=== PATIENT | female | born 1940 | race American Indian/Alaskan Native ===

== ENCOUNTER 2021-12-15 11:23 | Emergency (ER) | payer MEDICARE ==
[2021-12-15 14:17] VITALS: BP 179/75
--- NOTE | 2021-12-15 14:24 | Emergency Department Report ---
ED General Adult HPI - General Chief complaint: Hyperglycemia Stated complaint: BLOOD SUGAR Time Seen by Provider: 12/15/21 14:19 Source: patient Mode of arrival: Ambulatory Limitations: No Limitations - Related Data Home Medications Medication Instructions Recorded Confirmed Last Taken Aspirin BABY CHEW TAB 81 mg PO DAILY 08/14/14 08/14/14 Unknown Lisinopril 40 mg PO DAILY 08/14/14 08/14/14 Unknown NexIUM 20 mg PO DAILY 08/14/14 08/14/14 Unknown Rosuvastatin Calcium 5 mg PO DAILY 08/14/14 08/14/14 Unknown Triamter/Hctz 75-50 mg 1 tab PO DAILY 08/14/14 08/14/14 Unknown Verapamil 180 mg PO DAILY 08/14/14 08/14/14 Unknown glipiZIDE XL 2.5 mg PO DAILY 08/14/14 08/14/14 Unknown metFORMIN 500 mg PO BID 08/14/14 08/14/14 Unknown Previous Rx's Medication Instructions Recorded Last Taken Type Famotidine [Pepcid] 20 mg PO BID #14 tablet 08/14/14 Unknown Rx cephALEXin [Keflex] 500 mg PO TID #30 capsule 08/14/14 Unknown Rx hydrOXYzine PAMOATE [Vistaril] 25 mg PO Q6HR PRN #30 capsule 08/14/14 Unknown Rx Furosemide [Lasix] 20 mg PO QDAY PRN #20 tablet 09/17/14 Unknown Rx Allergies Allergy/AdvReac Type Severity Reaction Status Date / Time Penicillins Allergy Hives Verified 12/15/21 14:12 Sulfa (Sulfonamide Allergy Hives Verified 12/15/21 14:12 Antibiotics) ED Review of Systems ROS: Stated complaint: BLOOD SUGAR Other details as noted in HPI ED Past Medical Hx - Past Medical History Hx Hypertension: Yes Hx Diabetes: Yes Hx GERD: Yes Hx Renal Disease: Yes Hx Arthritis: Yes (GOUT) Additional medical history: HIGH CHOLESTEROL. ECZEMA. Bullous pemphigoid - Surgical History Additional Surgical History: HYSTERECTOMY - Social History Smoking Status: Former Smoker Substance Use Type: None - Medications Home Medications: Home Medications Medication Instructions Recorded Confirmed Last Taken Type Aspirin BABY CHEW TAB 81 mg PO DAILY 08/14/14 08/14/14 Unknown History Famotidine [Pepcid] 20 mg PO BID #14 tablet 08/14/14 Unknown Rx Lisinopril 40 mg PO DAILY 08/14/14 08/14/14 Unknown History NexIUM 20 mg PO DAILY 08/14/14 08/14/14 Unknown History Rosuvastatin Calcium 5 mg PO DAILY 08/14/14 08/14/14 Unknown History Triamter/Hctz 75-50 mg 1 tab PO DAILY 08/14/14 08/14/14 Unknown History Verapamil 180 mg PO DAILY 08/14/14 08/14/14 Unknown History cephALEXin [Keflex] 500 mg PO TID #30 capsule 08/14/14 Unknown Rx glipiZIDE XL 2.5 mg PO DAILY 08/14/14 08/14/14 Unknown History hydrOXYzine PAMOATE [Vistaril] 25 mg PO Q6HR PRN #30 capsule 08/14/14 Unknown Rx metFORMIN 500 mg PO BID 08/14/14 08/14/14 Unknown History Furosemide [Lasix] 20 mg PO QDAY PRN #20 tablet 09/17/14 Unknown Rx ED Physical Exam - General Limitations: No Limitations ED Course Vital Signs 12/15/21 14:15 Temperature 98.6 F Pulse Rate 65 Respiratory 20 Rate Blood Pressure 179/75 O2 Sat by Pulse 98 Oximetry Critical care attestation.: If time is entered above; I have spent that time in minutes in the direct care of this critically ill patient, excluding procedure time. ED Disposition Clinical Impression: Hyperglycemia Disposition: 01 HOME / SELF CARE / HOMELESS Is pt being admited?: No Does the pt Need Aspirin: No Condition: Stable Instructions: Preventing Type 2 Diabetes Mellitus, Hyperglycemia, [id number] Additional Instructions: Continue medications as prescribed by your doctor. Monitor and record your blood sugar. Follow up with your primary care doctor for further evaluation and management. Return to ED as needed. Referrals: FAIZA EVANGELISTA MD [Staff Physician] - 3-5 Days ROSANNA DUMONT MD [Referring] - 3-5 Days Time of Disposition: 14:23
== END 2021-12-15 15:04 | disposition home or self-care (01) ==
LOC: ED 11:23
DX: E11.65 Type 2 diabetes mellitus with hyperglycemia (principal); Z87.891 Personal history of nicotine dependence; Z88.2 Allergy status to sulfonamides
CPT/HCPCS: 99282